=== PATIENT | female | born 1955 ===

== ENCOUNTER 2020-09-11 12:32 | Outpatient (REF) | payer OTHER, SELFPAY ==
--- NOTE | 2020-09-11 | MM_ITS ---
EXAMINATION: BONE DENSITOMETRY CLINICAL INDICATION: Asymptomatic menopausal state. COMPARISON: This is the patient's baseline examination. TECHNIQUE: Using a [employer] DXA System (software version: 13.1) manufactured by [employer], dual-energy x-ray absorptiometry was performed of the lumbar spine, left hip and left forearm radius 33%. The images are of good technical quality. Summary results are attached. FINDINGS: AP SPINE L1-L2 (excluding L3 and L4): The data of L1-L4 has been changed to exclude the L3 and L4 vertebral bodies, because hardware at these levels may cause overestimation of lumbar spine density. BMD 1.118 g/cm2, Z-score 1.3, T-score -0.4, normal. LEFT FEMUR, NECK: BMD 0.825 g/cm2, Z-score 0.0, T-score -1.5, osteopenia. LEFT FEMUR, TOTAL: BMD 0.830 g/cm2, Z-score -0.1, T-score -1.4, osteopenia. LEFT FOREARM RADIUS 33%: BMD 0.760 g/cm2, Z-score -0.1, T-score -1.3, osteopenia. IDENTIFIED RISK FACTORS: Height loss. Parental hip fracture. Secondary osteoporosis (early menopause). Hysterectomy. Bilateral oophorectomy. HISTORY OF FRACTURE: None listed. MEDICATIONS: Calcium supplement and/or multivitamin. MM/XR DEXA axial skeleton IMPRESSION: 1. DIAGNOSIS: Osteopenia based on the lowest T-score value of -1.5 in the femoral neck applying World Health Organization criteria. 2. 10-YEAR FRACTURE RISK PREDICTION, FRAX: Major osteoporotic fracture (clinical spine, forearm, hip or shoulder) 16.4%. Hip fracture 0.9%. 3. Treatment Recommendations: NOF guidelines recommend consideration for treatment in postmenopausal women and men age 50 and older presenting with the following: -A hip or vertebral (clinical or morphometric) fracture. -T-score less than or equal to -2.5 at the femoral neck or spine after appropriate evaluation to exclude secondary causes. -Low bone mass at the hip or spine and a 10-year fracture probability by FRAX of greater than or equal to 3% for hip fracture or greater than or equal to 20% for major osteoporotic fracture based on the [place] adapted WHO algorithm. 4. Other Recommendations: All treatment decisions require clinical judgment and consideration of individual patient factors, including patient preferences, comorbidities, previous drug use, risk factors not captured in the FRAX model (e.g. frailty, falls, vitamin D deficiency, increased bone turnover, interval significant decline in bone density) and possible under or overestimation of fracture risk by FRAX. Additional medical evaluation for secondary cause of low bone mineral density may be appropriate. FUTURE SCAN RECOMMENDATION: People with diagnosed cases of osteoporosis or at high risk for fracture should have regular bone mineral density tests. For patients eligible for Medicare, routine testing is allowed once every 2 years. The testing frequency can be increased to one year for patients who have rapidly progressing disease, those who are receiving or discontinuing medical therapy to restore bone mass, or have additional risk factors.
--- NOTE | 2020-09-11 | MM_ITS ---
EXAMINATION: MM SCREENING DIGITAL BREAST TOMOSYNTHESIS, BILATERAL CLINICAL INFORMATION: Screening. Asymptomatic. The lifetime risk of breast cancer based on the Tyrer-Cuzick Model is 4.5%. COMPARISON: Mammography: February 15, 2019 and studies dating back to February 13, 2015 TECHNIQUE: Digital breast tomosynthesis is performed in both the craniocaudal and mediolateral oblique views along with computer-aided detection (CAD). Synthesized 2D images are generated from the tomosynthesis. FINDINGS: There are scattered areas of fibroglandular density (ACR BI-RADS breast composition Category b). There are no significant masses, abnormal calcifications, or other abnormalities. MM/MM tomosynthesis screening BI IMPRESSION: There are no significant changes from prior study. ASSESSMENT: BI-RADS 1: Negative RECOMMENDATION: Routine annual mammography screening. This patient's information was entered into a reminder system with a target due date for their next mammogram.
== END 2020-09-11 12:33 | disposition home or self-care (01) ==
LOC: HO.MAMMO 12:32
PROVIDERS: PCP Internal Medicine; Visit Provider Internal Medicine
DX: Z78.0 Asymptomatic menopausal state (principal); Z12.31 Encounter for screening mammogram for malignant neoplasm of breast; Z91.89 Other specified personal risk factors, not elsewhere classified
CPT/HCPCS: 77063; 77067; 77080

== ENCOUNTER 2020-10-07 09:38 | Outpatient (REF) | payer OTHER, SELFPAY ==
[2020-10-07 11:54] LABS: COVID-19 Test Negative (Negative); IDNOW Serial# 55D5AD1C
== END 2020-10-07 09:39 | disposition home or self-care (01) ==
LOC: HO.EMPCOV 09:38
PROVIDERS: Visit Provider Internal Medicine
DX: Z20.828 Contact with and (suspected) exposure to other viral communicable diseases (principal)
CPT/HCPCS: 87635; C9803

== ENCOUNTER 2020-10-10 16:34 | Outpatient (REF) | payer OTHER, SELFPAY ==
[2020-10-10 18:32] LABS: Alanine Aminotransferase 27 U/L (0-31); Albumin Level 4.4 g/dL (3.5-5.0); Alkaline Phosphatase 75 U/L (39-117); Anion Gap 12 (12-20); Aspartate Amino Transferase 29 U/L (5-31); Bilirubin Total 0.2 mg/dL (0.0-1.0); Blood Urea Nitrogen 17 mg/dL (9-16); Calcium 8.5 mg/dL (8.4-10.2); Carbon Dioxide 29 mmol/L (22-29); Chloride 102 mmol/L (96-108); Estimated Glomerular Filt Rate > 60; Glucose Random 92 mg/dL (60-115); Potassium 3.9 mmol/l (3.3-5.1); Sodium 139 mmol/L (135-145); Total Protein 6.7 g/dL (6.5-8.0)
== END 2020-10-10 16:35 | disposition home or self-care (01) ==
LOC: HO.LAB 16:34
PROVIDERS: PCP Internal Medicine; Visit Provider Student in an Organized Health Care Education/Training Program
DX: M17.0 Bilateral primary osteoarthritis of knee (principal)
CPT/HCPCS: 36415; 80053

== ENCOUNTER 2021-02-07 15:28 | Outpatient (REF) | payer OTHER, SELFPAY ==
--- NOTE | ~2021-02-07 | XR_ITS ---
EXAMINATION: XR knee RT 3V, XR knee LT 3V CLINICAL INFORMATION: Bilateral osteoarthritis. COMPARISON: None available at the time of this dictation. TECHNIQUE: Frontal lateral and patella sunrise view. FINDINGS: BONES: No fracture or dislocation is present. JOINTS: Mild narrowing of joint spaces suggest early degenerative osteoarthritis. No knee joint effusion. SOFT TISSUE: Normal XR/XR knee RT 3V IMPRESSION: Mild bilateral symmetric degenerative osteoarthritis. No knee joint effusion.
--- NOTE | ~2021-02-07 | XR_ITS ---
EXAMINATION: XR knee RT 3V, XR knee LT 3V CLINICAL INFORMATION: Bilateral osteoarthritis. COMPARISON: None available at the time of this dictation. TECHNIQUE: Frontal lateral and patella sunrise view. FINDINGS: BONES: No fracture or dislocation is present. JOINTS: Mild narrowing of joint spaces suggest early degenerative osteoarthritis. No knee joint effusion. SOFT TISSUE: Normal XR/XR knee LT 3V IMPRESSION: Mild bilateral symmetric degenerative osteoarthritis. No knee joint effusion.
[2021-02-08 08:22] LABS: Lyme Abs Screen <0.90 index
== END 2021-02-07 15:29 | disposition home or self-care (01) ==
LOC: HO.LAB 15:28
PROVIDERS: PCP Internal Medicine; Visit Provider Student in an Organized Health Care Education/Training Program
DX: M17.0 Bilateral primary osteoarthritis of knee (principal); Z88.6 Allergy status to analgesic agent; Z88.5 Allergy status to narcotic agent; Z88.8 Allergy status to other drugs, medicaments and biological substances; Z87.891 Personal history of nicotine dependence
CPT/HCPCS: 36415; 73562; 86617; 86618

== ENCOUNTER → 2021-05-30 13:02 | Outpatient (BNVA) | payer SELFPAY | PROVIDERS: PCP Internal Medicine | DX: Z20.822 Contact with and (suspected) exposure to COVID-19 (principal) | CPT/HCPCS: 36415; 87635 ==

== ENCOUNTER 2021-07-27 11:23 | Outpatient (REF) | payer OTHER, SELFPAY ==
[2021-07-27 12:22] LABS: Alanine Aminotransferase 20 U/L (0-31); Albumin Level 4.3 g/dL (3.5-5.0); Alkaline Phosphatase 75 U/L (39-117); Anion Gap 10 (12-20); Aspartate Amino Transferase 27 U/L (5-31); Bilirubin Total 0.4 mg/dL (0.0-1.0); Blood Urea Nitrogen 22 mg/dL (9-16); Calcium 9.7 mg/dL (8.4-10.2); Carbon Dioxide 29 mmol/L (22-29); Chloride 105 mmol/L (96-108); Estimated Glomerular Filt Rate > 60; Glucose Random 117 mg/dL (60-115); Potassium 4.9 mmol/L (3.3-5.1); Sodium 139 mmol/L (135-145); Total Protein 6.7 g/dL (6.5-8.0)
== END 2021-07-27 11:24 | disposition home or self-care (01) ==
LOC: HO.LAB 11:23
PROVIDERS: PCP Internal Medicine; Visit Provider Nurse Practitioner Family
DX: M17.0 Bilateral primary osteoarthritis of knee (principal)
CPT/HCPCS: 36415; 80053

== ENCOUNTER 2021-09-18 15:52 | Outpatient (REF) | payer OTHER, SELFPAY ==
--- NOTE | ~2021-09-18 | MM_ITS ---
EXAMINATION: MM SCREENING DIGITAL BREAST TOMOSYNTHESIS, BILATERAL CLINICAL INFORMATION: Screening. Asymptomatic. The lifetime risk of breast cancer based on the Tyrer-Cuzick Model is 4%. COMPARISON: Mammography: 09/11/2020, 02/15/2019, 01/26/2018 TECHNIQUE: Digital breast tomosynthesis is performed in both the craniocaudal and mediolateral oblique views along with computer-aided detection (CAD). Synthesized 2D images are generated from the tomosynthesis. FINDINGS: There are scattered areas of fibroglandular density (ACR BI-RADS breast composition Category b). Breast tissue composition borders on predominately fatty. Background stromal markings are stable. There are no significant masses, abnormal calcifications, or other abnormalities. The axilla and skin contours are unremarkable. MM/MM tomosynthesis screening BI IMPRESSION: No mammographic evidence of malignancy. ASSESSMENT: BI-RADS 1: Negative RECOMMENDATION: Routine annual mammography screening. This patient's information was entered into a reminder system with a target due date for their next mammogram.
== END 2021-09-18 15:53 | disposition home or self-care (01) ==
LOC: HO.MAMMO 15:52
PROVIDERS: Visit Provider Internal Medicine
DX: Z12.31 Encounter for screening mammogram for malignant neoplasm of breast (principal)
CPT/HCPCS: 77063; 77067

== ENCOUNTER 2021-12-28 16:41 | Outpatient (REF) | payer OTHER, SELFPAY ==
--- NOTE | ~2021-12-28 | XR_ITS ---
EXAMINATION: XR LUMBOSACRAL SPINE CLINICAL INFORMATION: Lumbago with sciatica left side. COMPARISON: None. TECHNIQUE: 3 views of the lumbosacral spine. FINDINGS: There is mild levoscoliosis. There is loss of L3-L4 disc height. There is L4-L5 disc prosthesis with posterior hardware for stabilization and fusion. The vertebral heights and alignment appear preserved. No lytic or sclerotic process seen. SI joints are symmetrical. There are degenerative disc changes T11-T12 disc level with mild ventral spondylosis. The paravertebral soft tissues are normal. There is moderate constipation. XR/XR lumbar spine 2-3V IMPRESSION: Levoscoliosis with degenerative disc changes L3-L4 and T11-T12 disc level. There is L4-L5 disc prosthesis with posterior hardware for fusion. No acute fracture or dislocation.
== END 2021-12-28 16:42 | disposition home or self-care (01) ==
LOC: HO.XRAY 16:41
PROVIDERS: PCP Internal Medicine; Visit Provider Nurse Practitioner Acute Care
DX: M54.42 Lumbago with sciatica, left side (principal)
CPT/HCPCS: 72100

== ENCOUNTER 2021-12-31 07:22 | Outpatient (REF) | payer OTHER, SELFPAY ==
[2021-12-31 07:51] LABS: MANUAL DIFF FLAG NO
[2021-12-31 08:14] LABS: Basophils Percent Auto 0.3 % (0-2); Eosinophils Absolute Auto 0.1 X10*3/uL (0.0-0.4); Eosinophils Percent Auto 2.5 % (0-4); Hematocrit 39.4 % (37.0-47.0); Hemoglobin 12.7 g/dl (12.0-16.0); Imm Gran Abs Auto 0.01 X10*3/uL (0.00-0.03); Imm Gran Pct Auto 0.3 % (0.0-0.4); Lymphocytes Percent Auto 28.2 % (20-40); Mean Corpuscular HGB Conc 32.2 g/dl (31.0-35.0); Mean Corpuscular Hemoglobin 30.1 pg (27.0-33.0); Mean Corpuscular Volume 93.4 fL (80.0-98.0); Monocytes Absolute Auto 0.2 X10*3/uL (0.1-1.2); Monocytes Percent Auto 6.5 % (2-11); Neutrophils Absolute Auto 2.2 x10*3/uL (2.0-8.3); Neutrophils Percent Auto 62.2 % (45-73); Platelet Count 194 X10*3/uL (160-400); Red Blood Count 4.22 X10*6/uL (4.20-5.50); Red Cell Distribution Width 12.2 % (11.0-16.0); White Blood Count 3.5 X10*3/uL (4.8-10.8)
[2021-12-31 08:52] LABS: Alanine Aminotransferase 20 U/L (0-31); Albumin Level 4.4 g/dL (3.5-5.0); Alkaline Phosphatase 62 U/L (39-117); Anion Gap 12 (12-20); Aspartate Amino Transferase 33 U/L (5-31); Bilirubin Total 0.3 mg/dL (0.0-1.0); Blood Urea Nitrogen 21 mg/dL (9-16); Calcium 9.5 mg/dL (8.4-10.2); Carbon Dioxide 28 mmol/L (22-29); Chloride 106 mmol/L (96-108); Cholesterol 189 mg/dL; Estimated Glomerular Filt Rate > 60; Glucose Fasting 82 mg/dL (60-99); HDL Cholesterol 79 mg/dL; LDL Cholesterol Calculated 102 mg/dl; Potassium 4.6 mmol/L (3.3-5.1); Sodium 141 mmol/L (135-145); Triglycerides 43 mg/dL
[2021-12-31 09:09] LABS: TSH reflex Free T4 2.96 uIU/mL (0.32-4.0)
[2021-12-31 09:25] LABS: Folate > 20.0 ng/mL (> or = 4.0); Vitamin B12 761 pg/mL (200-900)
[2022-01-04 13:55] LABS: Vitamin D 25-OH, D2 <4 ng/mL; Vitamin D 25-OH, D3 53 ng/mL; Vitamin D 25-OH, Total 53 ng/mL (30-100)
== END 2021-12-31 07:23 | disposition home or self-care (01) ==
LOC: HO.LAB 07:22
PROVIDERS: PCP Internal Medicine; Visit Provider Nurse Practitioner Acute Care
DX: Z00.00 Encounter for general adult medical examination without abnormal findings (principal)
CPT/HCPCS: 36415; 80053; 80061; 82306; 82607; 82746; 84443; 85025

== ENCOUNTER → 2022-01-07 07:59 | Outpatient (REF) | payer OTHER, SELFPAY ==
--- NOTE | 2022-01-07 08:09 | CA_ITS ---
Acquisition Time: 2022-01-07 08:34:23 Total Exercise Time: 00:07:30 Test Indications: DIZZYNESS Medications: SEE CHART Protocol: HÉCTOR Max HR: 123 BPM 78% of Pred: 156 BPM Max BP: 152/068 mmHG Max Work Load: 9.3 METS Exercise stress test with exercise 7 min 30 sec of Héctor protocol, achieving 78% MPHR, without anginal symptoms, with report of mild dizziness and bilateral shoulder/ arm discomfort ( from holding on to treadmill bar), with isolate PVC and PACs, with normotensive response to exercise, with nondiagnostic EKG for ischemia due to suboptimal heart rate however there are borderline ST changes inferolateral leads at peak and early recovery which does suggest possible ischemia. Test reviewed with Dr hSields. Msg sent to ordering provider with report and recommendation for a pharmacological nuclear stress test for further evaluation. Referred By: Christine Nesbitt Overread By: TREVOR MORALEZ
== END ==
LOC: HO.CARD 07:59
PROVIDERS: PCP Internal Medicine; Visit Provider Nurse Practitioner Acute Care
DX: R42 Dizziness and giddiness (principal)
CPT/HCPCS: 93017

== ENCOUNTER → 2022-01-23 08:01 | Outpatient (REF) | payer OTHER, SELFPAY ==
--- NOTE | ~2022-01-23 | NM_ITS ---
Myocardial perfusion study Indication: Dizziness to evaluate for myocardial ischemia Technique: The patient was brought in for a Lexiscan perfusion study on 01/23/2022. Patient performed low-level exercise and was injected 0.4 mg of Lexiscan intravenously. Within a minute of injection, 25 mCi of sestamibi was given intravenously. Images were obtained using the SPECT gamma camera interlaced with the gating device. Images were obtained in supine position. Resting perfusion study was performed on 01/25/2022. Patient was administered 25 mCi of sestamibi intravenously at rest. Images were then obtained in supine position. Images obtained with and without CT attenuation. Total DLP 68 mGy-cm. Images were processed with the software and compared side to side in short axis, horizontal long axis and vertical long axis views. Findings: The stress perfusion study showed non attenuated images show mildly reduced uptake in the basal septum of the LV myocardium. Remainder of the LV myocardium is normally perfused. Attenuation corrected images show mildly reduced uptake in the apex of the LV myocardium.. The gated study shows normal LV systolic function with calculated LVEF of 69%. LV cavity is normal in size. The gated study shows normal systolic wall thickening and contraction of segments. Resting study shows no significant change in perfusion pattern compared to stress perfusion study. Gating at rest reveals normal systolic wall motion with ejection fraction at greater than 70 %. The findings are consistent with no clear reversible defect suggestive of ischemia. Normal myocardial perfusion. NM/NM fatoumata perf SPECT rest & str Impression: 1. Myocardial perfusion imaging study shows normal myocardial perfusion 2. Gated LVEF is 69% 3. Transient ischemic dilatation not present EKG is nondiagnostic for ischemia
--- NOTE | 2022-01-23 08:04 | CA_ITS ---
Acquisition Time: 2022-01-23 08:13:14 Total Exercise Time: 00:02:00 Test Indications: Abnormal Treadmill Test Medications: SEE H Protocol: LEXISCAN Max HR: 121 BPM 77% of Pred: 156 BPM Max BP: 128/078 mmHG Max Work Load: 1.6 METS Pharmacological stress test using Lexiscan while walking on treadmill for 2 minutes. Pt had mild SOB and chest pressure 5/10 that was reversed with Aminophyline 75 mg IV. EKG without arrhythmia non-diagnostic for ischemia. Nuclear imagesa to follow. Referred By: Christine Nesbitt Overread By: Patrizia Andrews NP
== END ==
LOC: HO.CARD 08:01
PROVIDERS: PCP Internal Medicine; Visit Provider Nurse Practitioner Acute Care
DX: R42 Dizziness and giddiness (principal)
CPT/HCPCS: 78452; 93017; A9500; J0280; J2785

== ENCOUNTER 2022-01-29 12:24 | Emergency (ER) | payer OTHER, SELFPAY ==
--- NOTE | ~2022-01-29 | XR_ITS ---
EXAMINATION: XR CHEST CLINICAL INFORMATION: Covid infection COMPARISON: Previous chest x-ray November 2016 TECHNIQUE: Frontal view of the chest was obtained. FINDINGS: No significant abnormality is noted involving the heart, lungs, mediastinum, bony thorax or soft tissues. XR/XR chest 1V IMPRESSION: Unremarkable examination.
[2022-01-29 12:31] VITALS: BP 175/99; PULSE 93; RESP 18; TEMP 36.8; O2SAT 100; BMI 21.9
[2022-01-29 12:41] VITALS: BP 175/99; PULSE 93; RESP 18; TEMP 36.8; O2SAT 100
--- NOTE | 2022-01-29 12:43 | ED.NAVMDI ---
HPI - Nausea/Vomiting/Diarrhea General Chief complaint: Nausea/Vomiting/Diarrhea Stated complaint: n/v/d - home test covid+ Time Seen by Provider: 01/29/22 12:42 Source: patient Mode of arrival: ambulatory Limitations: no limitations History of Present Illness HPI Narrative: 66-year-old female with few days of COVID symptoms started with nausea vomiting diarrhea is starting to drink she vomits. Patient tested positive at home for COVID she states she has never had COVID before he thinks that several people at her judaism that also have COVID which have not been tested. She denies any falls or injuries denies chest pain or shortness of breath. MD elicited complaint: nausea, vomiting and diarrhea Related Data Home Medications Medication Instructions Recorded Confirmed docusate sodium 100 mg capsule 100 mg PO DAILY 02/07/21 (Colace) glucosamine sulfate 500 mg tablet 500 mg PO DAILY 02/07/21 (Glucosamine) magnesium hydroxide 400 mg (170 mg mg PO 02/07/21 magnesium) chewable tablet melatonin 10 mg capsule 10 mg PO BEDTIME PRN 02/07/21 omega-3 fatty acids 1,000 mg 1,000 mg PO BID 02/07/21 capsule (Fish Oil Concentrate) Previous Rx's Medication Instructions Recorded cyclobenzaprine 10 mg tablet 10 mg PO DAILY 90 Days #90 tab 05/12/21 rosuvastatin 10 mg tablet (Crestor) 10 mg PO DAILY 90 Days #90 tab 06/25/21 baclofen 10 mg tablet 10 mg PO BEDTIME PRN #90 tab 08/01/21 etodolac 400 mg tablet 400 mg PO BID #14 tab 11/15/21 tramadol 50 mg tablet 50 mg PO BID PRN 90 Days #180 tab 11/16/21 levothyroxine 75 mcg tablet 75 mcg PO DAILY #90 tab 01/14/22 nirmatrelvir 150 mg x 2-ritonavir 2 tab PO BID 5 Days #20 tab 01/29/22 100 mg tablet (EUA) ondansetron 4 mg disintegrating 4 mg PO Q6H #14 tab 01/29/22 tablet Allergies Allergy/AdvReac Type Severity Reaction Status Date / Time acetaminophen [Percocet] Allergy Unknown stomach Verified 01/29/22 12:31 upset cefaclor [From CECLOR] Allergy Unknown ICTH, Verified 01/29/22 12:31 hives, itchy Erythromycin Allergy Unknown hives, Verified 01/29/22 12:31 itchy erythromycin base Allergy Unknown ITCHING Verified 01/29/22 12:31 [ERYTHROMYCIN BASE] oxycodone [Percocet] Allergy Unknown stomach Verified 01/29/22 12:31 upset tetracycline [TETRACYCLINE] Allergy Unknown ITCH, Verified 01/29/22 12:31 hives, itchy Codeine Sulfate Allergy Unknown nausea Uncoded 01/29/22 12:31 Review of Systems Review of Systems: Review of systems: General: Patient denies any fever chills recent illness or falls Musculoskeletal: Denies back pain or body aches or other injuries HEENT: denies headache, runny nose, ear pain Respiratory: denies shortness of breath, cough Cardiovascular: no chest pain or palpitations : denies dysuria, frequency Abdomen: nausea vomiting denies abdominal pain Extremities: no swelling, no pain Skin: no diaphoresis Yes all other systems are reviewed and are negative PMFSH Past Medical History Medical History (Updated 01/29/22 @ 13:52 by Salazar Seymour DO) COVID-19 Social History Social History Housing: House Alcohol intake: current Alcohol intake frequency: a few times a month Patient Tobacco Use Status: Never used Tobacco e-Cigarette/Vaping Use: Never Used Second Hand Smoke Exposure: No Use of substances other than those prescribed or required for medical reasons: No Advance Directives: No Advance Directives Information Provided: No Patient : No service: No Current occupational status: employed Current occupational exposures/hazards: No Cognitive needs: No Hearing needs: No Vision needs: Yes Physical Exam Vital Signs: Vital Signs: Last Vital Signs Temp 98.2 F 01/29/22 12:41 Pulse 93 01/29/22 12:41 Resp 18 01/29/22 12:41 BP 175/99 H 01/29/22 12:41 Pulse Ox 100 01/29/22 12:41 BMI result Body Mass Index 21.9 General: Well-appearing well-nourished in no signs of distress HEENT: Normocephalic atraumatic Neck: No signs of JVD, no masses no tenderness or lymphadenopathy Cardiovascular: Regular rate and rhythm Respiratory: Clear to auscultation bilaterally Abdomen: Soft nontender no masses rectal exam performed guiac negative quality assurance analyst confirmed. Extremities: Normal pedal pulses no signs of edema Skin: Dry warm no rashes Back: No tenderness full ROM MDM - Nausea/Vomiting/Diarrhea MDM Narrative Medical decision making narrative: Patient with normal vitals I will give patient fluids Pepcid Zofran and Toradol stating the patient feeling somewhat better I will check labs including LFTs and lipase. Patient with mild elevation AST and ALT but otherwise normal do not think the patient requires admission she is sleeping in the feeling much better I will send home with Zofran and close PCP follow-up. Lab Data Result diagrams: 01/29/22 13:06 01/29/22 13:06 Labs: Lab Results 01/29/22 01/29/22 01/29/22 Range/Units 12:37 13:06 13:06 WBC 2.4 L (4.8-10.8) X10*3/uL RBC 4.10 L (4.20-5.50) X10*6/uL Hgb 12.1 (12.0-16.0) g/dl Hct 36.0 L (37.0-47.0) % MCV 87.8 (80.0-98.0) fL MCH 29.5 (27.0-33.0) pg MCHC 33.6 (31.0-35.0) g/dl RDW 11.9 (11.0-16.0) % Plt Count 123 L D (160-400) X10*3/uL MPV 8.7 L (9.4-12.3) fL Immature Gran % (Auto) 0.4 (0.0-0.4) % Neut % (Auto) 89.1 H (45-73) % Lymph % (Auto) 4.2 L (20-40) % [place] % (Auto) 6.3 (2-11) % Eos % (Auto) 0.0 (0-4) % Baso % (Auto) 0.0 (0-2) % Lymph # (Auto) 0.1 L (1.2-4.9) X10*3/uL [place] # (Auto) 0.2 (0.1-1.2) X10*3/uL Eos # (Auto) 0.0 (0.0-0.4) X10*3/uL Baso # (Auto) 0.0 (0.0-0.2) X10*3/uL Abs Immat Gran (auto) 0.01 (0.00-0.03) X10*3/uL Absolute Neuts (auto) 2.1 (2.0-8.3) x10*3/uL Absolute Nucleated RBC 0.000 (0.0-0.012) X10*3/uL Nucleated RBC % (auto) 0.0 (0.0-0.2) /100WBC Smear Tech's Comments VERIFIED Sodium 133 L (135-145) mmol/L Potassium 3.7 (3.3-5.1) mmol/L Chloride 99 (96-108) mmol/L Carbon Dioxide 25 (22-29) mmol/L Anion Gap 13 (12-20) BUN 17 H (9-16) mg/dL Creatinine 0.61 (0.5-1.4) mg/dL Estim Creat Clear Calc 73.6 Estimated GFR > 60 Random Glucose 111 (60-115) mg/dL Calcium 9.4 (8.4-10.2) mg/dL Total Bilirubin 0.2 (0.0-1.0) mg/dL Direct Bilirubin < 0.2 (0.0-0.5) mg/dL AST 51 H (5-31) U/L ALT 43 H (0-31) U/L Alkaline Phosphatase 78 D (39-117) U/L Total Protein 7.0 (6.5-8.0) g/dL Albumin 4.4 (3.5-5.0) g/dL Lipase 32 (8-78) U/L COVID-19 (EDDIE) Positive A (Negative) COVID-19 Clin Com See Note Discharge Plan Discharge Clinical Impression: COVID-19, Dehydration, Vomiting, Diarrhea Patient Disposition: Home, Self-Care Instructions: Dehydration (ED), Acute Nausea and Vomiting (ED), COVID-19 (Coronavirus Disease 2019) (ED) Additional Instructions: Please call to follow up with your doctor. If you have any other concerns please return to the ED. Prescriptions: New ondansetron 4 mg tablet,disintegrating 4 mg PO Q6H Qty: 14 0RF No Action cyclobenzaprine 10 mg tablet 10 mg PO DAILY 90 Days Qty: 90 3RF rosuvastatin [Crestor] 10 mg tablet 10 mg PO DAILY 90 Days Qty: 90 3RF baclofen 10 mg tablet 10 mg PO BEDTIME PRN (Reason: spasms) Qty: 90 0RF etodolac 400 mg tablet 400 mg PO BID Qty: 14 0RF tramadol 50 mg tablet 50 mg PO BID PRN (Reason: pain) 90 Days Qty: 180 0RF levothyroxine 75 mcg tablet 75 mcg PO DAILY Qty: 90 1RF nirmatrelvir-ritonavir 150 mg x 2- 100 mg tablet 2 tab PO BID 5 Days Qty: 20 0RF docusate sodium [Colace] 100 mg capsule 100 mg PO DAILY 0RF magnesium hydroxide 400 mg (170 mg magnesium) tablet,chewable PO 0RF glucosamine sulfate [Glucosamine] 500 mg tablet 500 mg PO DAILY 0RF Rx Instructions: administer with a meal omega-3 fatty acids [Fish Oil Concentrate] 1,000 mg capsule 1,000 mg PO BID 0RF melatonin 10 mg capsule 10 mg PO BEDTIME PRN0RF
[2022-01-29 12:58] LABS: COVID-19 Test Positive (Negative)
[2022-01-29] MEDS: 0.9 % Sodium Chloride 1,000 ML 999 ML IV (13:08)
[2022-01-29] MEDS: Ketorolac Tromethamine 15 MG/ML VIAL IVPUSH (13:08)
[2022-01-29] MEDS: Famotidine/PF 20 MG/2 ML VIAL IVPUSH (13:08)
[2022-01-29] MEDS: ondansetron HCL 4 MG/2 ML VIAL IVPUSH (13:08)
[2022-01-29 13:12] LABS: Hemoglobin 12.1 g/dl (12.0-16.0); Imm Gran Abs Auto 0.01 X10*3/uL (0.00-0.03); Imm Gran Pct Auto 0.4 % (0.0-0.4); Lymphocytes Absolute Auto 0.1 X10*3/uL (1.2-4.9); Lymphocytes Percent Auto 4.2 % (20-40); MANUAL DIFF FLAG SCAN; Mean Corpuscular HGB Conc 33.6 g/dl (31.0-35.0); Mean Corpuscular Hemoglobin 29.5 pg (27.0-33.0); Mean Corpuscular Volume 87.8 fL (80.0-98.0); Mean Platelet Volume 8.7 fL (9.4-12.3); Monocytes Absolute Auto 0.2 X10*3/uL (0.1-1.2); Monocytes Percent Auto 6.3 % (2-11); Neutrophils Absolute Auto 2.1 x10*3/uL (2.0-8.3); Neutrophils Percent Auto 89.1 % (45-73); Red Cell Distribution Width 11.9 % (11.0-16.0); SCAN SMEAR FLAG 1
[2022-01-29 13:13] LABS: White Blood Count 2.4 X10*3/uL (4.8-10.8)
[2022-01-29 13:32] LABS: Alanine Aminotransferase 43 U/L (0-31); Albumin Level 4.4 g/dL (3.5-5.0); Alkaline Phosphatase 78 U/L (39-117); Anion Gap 13 (12-20); Aspartate Amino Transferase 51 U/L (5-31); Bilirubin Direct < 0.2 mg/dL (0.0-0.5); Bilirubin Total 0.2 mg/dL (0.0-1.0); Blood Urea Nitrogen 17 mg/dL (9-16); Calcium 9.4 mg/dL (8.4-10.2); Carbon Dioxide 25 mmol/L (22-29); Chloride 99 mmol/L (96-108); Creatinine Clr Calc Pharmacy 73.6; Estimated Glomerular Filt Rate > 60; Glucose Random 111 mg/dL (60-115); Lipase 32 U/L (8-78); Potassium 3.7 mmol/L (3.3-5.1); Sodium 133 mmol/L (135-145)
[2022-01-29 13:33] LABS: Platelet Count 123 X10*3/uL (160-400); SLIDE REVIEW VERIFIED
[2022-01-29 14:49] VITALS: BP 155/70; PULSE 88; RESP 16; O2SAT 100
== END 2022-01-29 14:49 | disposition home or self-care (01) ==
PROVIDERS: Emergency Provider Student in an Organized Health Care Education/Training Program; PCP Internal Medicine
DX: U07.1 COVID-19 (principal); E86.0 Dehydration; R11.10 Vomiting, unspecified; R19.7 Diarrhea, unspecified
CPT/HCPCS: 36415; 71045; 80048; 80076; 83690; 85025; 87635; 96361; 96374; 96375; 99284; J1885; J2405

== ENCOUNTER 2022-02-18 11:30 | Outpatient (REF) | payer OTHER, SELFPAY ==
[2022-02-18 16:43] LABS: MANUAL DIFF FLAG NO
[2022-02-18 18:24] LABS: Basophils Percent Auto 0.5 % (0-2); Eosinophils Absolute Auto 0.1 X10*3/uL (0.0-0.4); Eosinophils Percent Auto 2.5 % (0-4); Hematocrit 34.5 % (37.0-47.0); Hemoglobin 11.4 g/dl (12.0-16.0); Imm Gran Abs Auto 0.01 X10*3/uL (0.00-0.03); Imm Gran Pct Auto 0.2 % (0.0-0.4); Lymphocytes Absolute Auto 1.2 X10*3/uL (1.2-4.9); Lymphocytes Percent Auto 29.2 % (20-40); Mean Corpuscular Hemoglobin 29.9 pg (27.0-33.0); Mean Corpuscular Volume 90.6 fL (80.0-98.0); Mean Platelet Volume 8.9 fL (9.4-12.3); Monocytes Absolute Auto 0.3 X10*3/uL (0.1-1.2); Neutrophils Absolute Auto 2.4 x10*3/uL (2.0-8.3); Neutrophils Percent Auto 59.6 % (45-73); Platelet Count 194 X10*3/uL (160-400); Red Blood Count 3.81 X10*6/uL (4.20-5.50); Red Cell Distribution Width 12.3 % (11.0-16.0)
[2022-02-18 18:52] LABS: Alanine Aminotransferase 25 U/L (0-31); Albumin Level 4.1 g/dL (3.5-5.0); Alkaline Phosphatase 70 U/L (39-117); Anion Gap 11 (12-20); Aspartate Amino Transferase 29 U/L (5-31); Bilirubin Total 0.3 mg/dL (0.0-1.0); Blood Urea Nitrogen 23 mg/dL (9-16); Calcium 9.5 mg/dL (8.4-10.2); Carbon Dioxide 27 mmol/L (22-29); Chloride 104 mmol/L (96-108); Estimated Glomerular Filt Rate > 60; Glucose Random 100 mg/dL (60-115); Potassium 4.1 mmol/L (3.3-5.1); Sodium 138 mmol/L (135-145); Total Protein 6.6 g/dL (6.5-8.0)
== END 2022-02-18 11:31 | disposition home or self-care (01) ==
LOC: HO.LAB 11:30
PROVIDERS: PCP Internal Medicine; Visit Provider Nurse Practitioner Family
DX: M17.0 Bilateral primary osteoarthritis of knee (principal); M47.812 Spondylosis without myelopathy or radiculopathy, cervical region; M54.42 Lumbago with sciatica, left side
CPT/HCPCS: 36415; 80053; 85025

== ENCOUNTER → 2022-03-20 10:36 | Outpatient (BNVA) | payer OTHER, SELFPAY | PROVIDERS: PCP Internal Medicine; Referring Provider Internal Medicine; Visit Provider Internal Medicine Cardiovascular Disease | DX: R42 Dizziness and giddiness (principal); R06.02 Shortness of breath | CPT/HCPCS: 93005 ==

== ENCOUNTER 2022-03-26 17:00 | Outpatient (RCR) | payer OTHER, SELFPAY | END 2022-05-06 10:21 | disposition home or self-care (01) | LOC: HO.PT 17:00 | PROVIDERS: PCP Internal Medicine; Visit Provider Nurse Practitioner Acute Care | DX: M47.816 Spondylosis without myelopathy or radiculopathy, lumbar region (principal); M47.812 Spondylosis without myelopathy or radiculopathy, cervical region | CPT/HCPCS: 97110; 97112; 97161; 97530 ==

== ENCOUNTER 2022-04-26 13:00 | Outpatient (RCR) | payer OTHER, SELFPAY ==
--- NOTE | 2022-04-02 13:23 | MHC.PT.EP ---
[facility] [place] [facility] [place] Office [place] Office [address] Yadi Urbina [address] [phone] F: [phone] F: [phone] F: [phone] F: [phone] Physical Therapy Plan of Care Date of Evaluation: Date of Surgery: Diagnosis: vertigo Assessment: The patient arrived reporting dizziness with position change. She was positive in right hallpike for vertigo symptoms. No nystagmus noted. I did CRM as a precautionary measure for right PC. The pt will undergo a more in depth balance assessment next visit. She felt better upon leaving. Frequency and Duration: The patient will be seen 2x/week x 2 weeks Short Term Goals: 1.Pt to be negative for nystagmus in all diagnostic positions for BPPV to facilitate improved functional movements. Group Home Goals: 1. For the patient to be negative for nystagmus or reports of vertigo in all diagnostic positions bilaterally to resolution of BPPV in 4 weeks. 2. For the patient to be able to functionally move in all planes and directions without provocation of dizziness to show return to PLOF. 3.For the patient to be educated on symptoms and indications to return to therapy when needed in 4 weeks. Treatment Plan: Modalities to reduce pain, spasms and effusion. Manual therapy to restore motion and function. Therapeutic exercise to improve strength and flexibility. Neuromuscular re-education for posture and balance. Therapeutic activities to return to functional activities of daily living. Electronically signed by: Christine Cote PT DPT Please sign and return to therapist. Thank you for your referral.
== END 2022-09-02 15:22 | disposition home or self-care (01) ==
LOC: HO.PT 13:00
PROVIDERS: PCP Internal Medicine; Visit Provider Internal Medicine
DX: R42 Dizziness and giddiness (principal)
CPT/HCPCS: 95992; 97112; 97162

== ENCOUNTER → 2022-05-09 13:01 | Outpatient (REF) | payer OTHER, SELFPAY ==
--- NOTE | 2022-05-09 13:07 | HM_ITS ---
* Total monitoring time 3 days and 10 hours. * Underlying rhythm is sinus. Average rate 81/Min. Range 67 to 112/Min. * No atrial fibrillation or flutter or AV blocks or pauses. * Rare supraventricular and ventricular ectopy with minimal burden. * Patient symptoms of shortness of breath, rapid/fast heartbeat associated with supraventricular and ventricular ectopy. MTDD
--- NOTE | 2022-05-09 13:07 | CA_ITS ---
Transthoracic Echocardiogram Patient (Last, First, Middle): Bernadette Kwon M Gender: Female Date of : 1955 Age: 67 Procedure Date: 05/09/2022 Procedure Type: Transthoracic Echocardiogram Location: OP Height: 157.48 cm Weight: 52.62 kg BSA: 1.52 m2 Heart Rate: bpm BP: 118 / 70 mmHg Lean Engineer: TO Referring MD: Piero Shields MD Waterproofer Helper: Piero Shields MD Symptoms: R42 - Dizziness and giddiness Study Quality: Adequate ECG Rhythm: Sinus Conclusions: - 1. Normal LV systolic function with grade 1 diastolic dysfunction 2. Normal cardiac valvular Doppler 3. Normal RV systolic pressure 4. No gross pericardial effusion Findings Left Ventricle Normal left ventricular size, thickness, and systolic function. The visually estimated ejection fraction is between 60-65%. Spectral Doppler is indicative of an impaired relaxation filling pattern. E/E prime ratio is <8, consistent with normal filling pressures. Evidence suggests grade I (mild) diastolic dysfunction. Right Ventricle Normal right ventricular cavity size and systolic function. Atria Both atria are normal in size. There is lipomatous hypertrophy of the interatrial septum. There is no evidence of interatrial shunt. Aortic Valve Normal aortic valve structure and function. There is no aortic valve stenosis. There is no aortic valve regurgitation. Mitral Valve There is mild anterior and posterior mitral leaflet thickening. There is trace mitral valve regurgitation. There is no mitral valve stenosis. Pulmonic Valve The pulmonic valve was not well visualized. Tricuspid Valve Likely normal tricuspid valve structure and function. There is trace tricuspid valve regurgitation. The right ventricular systolic pressure is normal. The right ventricular systolic pressure is 17 mmHg. Normal right atrial pressure. There is no evidence of pulmonary hypertension. Great Vessels All visible segments of the aorta are normal in size. The pulmonary artery was not well visualized. Venous The inferior vena cava is normal in size and collapses greater than 50% with inspiration. Pericardium/Pleural There is no evidence of pericardial effusion. Prior Study Comparison No prior study available for comparison. Measurements 2D Linear Measurements IVSd: 0.97 0.6-0.9/0.6-1.0 cm LVIDd: 4.31 3.9-5.3/4.2-5.9 cm LVIDd Index: 2.84 2.4-3.2/2.2-3.1 cm/m2 LVIDs: 2.35 2.0-3.6 cm LVPWd: 0.85 0.7-1.1 cm LA Diam: 2.50 2.7-3.8/3.0-4.0 cm LAIDs Index: 1.64 1.5-2.3 cm/m2 LV Mass: 156.53 67-162/88-224 g LV Mass Index: 102.98 43-95/49-115 g/m2 LVOT Diam: 2.00 3.0+(-)1.3 cm 2D Systolic Function EF 4C: 61.70 >55% EF 2C: 62.40 >55% EF BiP: 63.50 >55% Mitral Valve MV Pk E: 0.71 MV PK A: 0.75 MV Decel Time: 206.00 E/A: 0.90 E'Lateral: 9.57 E'Medial: 7.29 E/E' Med: 9.80 E/E' Lat: 7.40 PHT: 60.00 MVA PHT: 3.67 Decel Thayer: 3.46 Aortic Valve AoV Pk James: 1.59 AoV Mn James: 1.17 AoV VTI: 0.35 AoV Pk Grad: 10.00 Aov Mn Grad: 6.00 GERMAIN Cont.VTI: 2.46 LVOT LVOT Pk James: 1.17 LVOT Mn James: 0.86 LVOT VTI: 0.27 LVOT Pk Grad: 5.00 LVOT Mn Grad: 3.00 LVOT Diam: 2.00 LVOT Area: 3.14 Diastolic Function MV Pk E: 0.71 MV Pk A: 0.75 E/A: 0.90 E'Medial: 7.29 E/E' Med: 9.80 E' Laterial: 9.57 E/E' Lat: 7.40 Right Ventricle TAPSE (mm): 22.60 TVS' James: 10.70 Tricuspid Valve TR Pk James: 1.87 TR Pk Grad: 14.00 RA Press: 3.00 RVSP: 17.00 Great Vessels Aorta Sinus of Valsalva: 3.54 2.0-3.[address] Ridge: 2.57 1.7-3.4 cm Ao Asc: 3.00 2.1-3.4 cm Updated in Other Vendor System with Status of Final Piero Shields MD electronically signed on 05/10/2022 4:46:14 PM with status of Final
== END ==
LOC: HO.CARD 13:01
PROVIDERS: PCP Internal Medicine; Visit Provider Internal Medicine Cardiovascular Disease
DX: R42 Dizziness and giddiness (principal); R06.02 Shortness of breath
CPT/HCPCS: 93242; 93306

== ENCOUNTER 2022-05-14 16:31 | Outpatient (REF) | payer OTHER, SELFPAY ==
[2022-05-16 13:08] LABS: Gliadin Deamidated IgA Ab <1.0 U/mL; Gliadin Deamidated IgG Ab <1.0 U/mL; Transglutaminase Ab IgG <1.0 U/mL; Transglutaminase IgA <1.0 U/mL
[2022-05-16 21:17] LABS: Immunoglobulin A 143 mg/dL (70-320)
[2022-05-23 14:51] LABS: Endomysial IgA Antibody Negative (Negative)
== END 2022-05-14 16:32 | disposition home or self-care (01) ==
LOC: HO.LAB 16:31
PROVIDERS: PCP Internal Medicine; Visit Provider Internal Medicine
DX: K58.9 Irritable bowel syndrome, unspecified (principal); R19.7 Diarrhea, unspecified
CPT/HCPCS: 36415; 82784; 86231; 86258; 86364

== ENCOUNTER 2022-08-05 11:30 | Outpatient (REF) | payer OTHER, SELFPAY ==
--- NOTE | ~2022-08-05 | XR_ITS ---
EXAMINATION: XR FOOT, LEFT CLINICAL INFORMATION: Pain COMPARISON: Previous x-ray October 2015 TECHNIQUE: AP, lateral, and oblique views of the left foot. FINDINGS: The bones and soft tissues are normal. No fracture. Alignment is anatomic. Joint spaces are maintained. XR/XR foot LT min 3V IMPRESSION: Normal left foot.
== END 2022-08-05 11:31 | disposition home or self-care (01) ==
LOC: HO.HOSX 11:30
PROVIDERS: Visit Provider Physician Assistant
DX: M79.672 Pain in left foot (principal)
CPT/HCPCS: 73630

== ENCOUNTER 2022-10-14 16:14 | Outpatient (REF) | payer OTHER, SELFPAY ==
--- NOTE | ~2022-10-14 | MM_ITS ---
EXAMINATION: MM SCREENING DIGITAL BREAST TOMOSYNTHESIS, BILATERAL CLINICAL INFORMATION: Screening. Asymptomatic. The lifetime risk of breast cancer based on the Tyrer-Cuzick Model is 4.6%. COMPARISON: Mammography: September 18, 2021 and studies dating back to February 27, 2016 TECHNIQUE: Digital breast tomosynthesis is performed in both the craniocaudal and mediolateral oblique views along with computer-aided detection (CAD). Synthesized 2D images are generated from the tomosynthesis. FINDINGS: There are scattered areas of fibroglandular density (ACR BI-RADS breast composition Category b). There are no significant masses, abnormal calcifications, or other abnormalities. MM/MM tomosynthesis screening BI IMPRESSION: No significant changes from prior exam. ASSESSMENT: BI-RADS 1: Negative RECOMMENDATION: Routine annual mammography screening. This patient's information was entered into a reminder system with a target due date for their next mammogram.
== END 2022-10-14 16:15 | disposition home or self-care (01) ==
LOC: HO.MAMMO 16:14
PROVIDERS: PCP Internal Medicine; Visit Provider Internal Medicine
DX: Z12.31 Encounter for screening mammogram for malignant neoplasm of breast (principal)
CPT/HCPCS: 77063; 77067

== ENCOUNTER 2022-11-21 16:37 | Outpatient (REF) | payer OTHER, SELFPAY ==
[2022-11-21 16:49] LABS: MANUAL DIFF FLAG NO
[2022-11-21 18:03] LABS: Basophils Percent Auto 0.7 % (0-2); Eosinophils Absolute Auto 0.2 X10*3/uL (0.0-0.4); Hematocrit 39.2 % (37.0-47.0); Hemoglobin 12.7 g/dl (12.0-16.0); Imm Gran Abs Auto 0.03 X10*3/uL (0.00-0.03); Imm Gran Pct Auto 0.5 % (0.0-0.4); Lymphocytes Absolute Auto 1.7 X10*3/uL (1.2-4.9); Lymphocytes Percent Auto 28.7 % (20-40); Mean Corpuscular HGB Conc 32.4 g/dl (31.0-35.0); Mean Corpuscular Hemoglobin 29.2 pg (27.0-33.0); Mean Corpuscular Volume 90.1 fL (80.0-98.0); Mean Platelet Volume 8.7 fL (9.4-12.3); Monocytes Absolute Auto 0.4 X10*3/uL (0.1-1.2); Monocytes Percent Auto 6.8 % (2-11); Neutrophils Absolute Auto 3.6 x10*3/uL (2.0-8.3); Neutrophils Percent Auto 60.3 % (45-73); Platelet Count 231 X10*3/uL (160-400); Red Blood Count 4.35 X10*6/uL (4.20-5.50); Red Cell Distribution Width 11.8 % (11.0-16.0)
[2022-11-21 18:09] LABS: Alanine Aminotransferase 26 U/L (0-31); Albumin Level 4.4 g/dL (3.5-5.0); Alkaline Phosphatase 83 U/L (39-117); Anion Gap 15 (12-20); Aspartate Amino Transferase 32 U/L (5-31); Bilirubin Total 0.3 mg/dL (0.0-1.0); Blood Urea Nitrogen 22 mg/dL (9-16); Calcium 9.3 mg/dL (8.4-10.2); Carbon Dioxide 27 mmol/L (22-29); Chloride 103 mmol/L (96-108); Estimated Glomerular Filt Rate > 60; Glucose Random 84 mg/dL (60-115); Potassium 4.6 mmol/L (3.3-5.1); Sodium 140 mmol/L (135-145); Total Protein 6.9 g/dL (6.5-8.0)
== END 2022-11-21 16:38 | disposition home or self-care (01) ==
LOC: HO.LAB 16:37
PROVIDERS: PCP Internal Medicine; Visit Provider Nurse Practitioner Family
DX: M47.816 Spondylosis without myelopathy or radiculopathy, lumbar region (principal)
CPT/HCPCS: 36415; 80053; 85025

== ENCOUNTER 2023-01-01 14:00 | Outpatient (RCR) | payer OTHER, SELFPAY ==
--- NOTE | 2023-01-22 09:52 | MHC.PT.DC ---
[facility] [place] Office [place] Office [place] Office [address] Y[address] [place] [address] [phone] F: [phone] F: [phone] F: [phone] F: [phone] Physical Therapy Discharge Report Diagnosis: BPPV Date of Surgery: Date of Evaluation: 12/30/22 Date of Discharge: 01/22/23 Treatments to Date: 2 Cancellations to Date: 0 No Shows to Date: 0 Discharge Status: Achieved Goals Improved Function Discharge Summary: NOLAN ATTENDED 2 VISITS OF PT AND SYMPTOMS OF VERTIGO HAVE RESOLVED. SHE IS DCed AT THIS TIME AND IS TO CALL US IF SYMPTOMS RETURN. Electronically signed by: ASH WILLETT PT, DPT Please sign and return to therapist. Thank you for your referral.
== END 2023-01-22 09:52 | disposition home or self-care (01) ==
LOC: HO.PT 14:00
PROVIDERS: Visit Provider Internal Medicine
DX: R42 Dizziness and giddiness (principal)
CPT/HCPCS: 95992; 97161

== ENCOUNTER → 2023-01-01 14:40 | Outpatient (BNVA) | payer OTHER, SELFPAY | PROVIDERS: PCP Internal Medicine; Visit Provider Nurse Practitioner Family | DX: Z13.89 Encounter for screening for other disorder (principal) ==

== ENCOUNTER 2023-01-28 15:00 | Outpatient (REF) | payer OTHER, SELFPAY ==
--- NOTE | ~2023-01-28 | MM_ITS ---
EXAMINATION: BONE DENSITOMETRY CLINICAL INDICATION: Osteopenia. COMPARISON: Baseline BD dated 09/11/2020. TECHNIQUE: Using a Plain Vanilla DXA System (software version: 13.1) manufactured by [employer], dual-energy x-ray absorptiometry was performed of the lumbar spine and left hip. The images are of good technical quality. Summary results are attached. FINDINGS: AP SPINE L1-L2 (excluding L3 and L4): The data of L1-L4 has been changed to exclude the L3 and L4 vertebral bodies, because hardware at these levels may cause overestimation of lumbar spine density. Current: BMD 1.077 g/cm2, Z-score 1.3, T-score -0.7, normal, 3.7% decrease from baseline (<5% change is not significant). Baseline: BMD 1.118 g/cm2. LEFT FEMUR, NECK: Current: BMD 0.752 g/cm2, Z-score -0.3, T-score -2.1, osteopenia. Baseline: BMD 0.825 g/cm2. LEFT FEMUR, TOTAL: Current: BMD 0.812 g/cm2, Z-score 0.0, T-score -1.6, osteopenia, 2.2% decrease from baseline (<5% change is not significant). Baseline: BMD 0.830 g/cm2. IDENTIFIED RISK FACTORS: Early menopause, bilateral oophorectomy, height loss, hysterectomy, secondary osteoporosis. HISTORY OF FRACTURE: None listed. MEDICATIONS: Calcium, vitamin D. MM/XR DEXA axial skeleton IMPRESSION: 1. DIAGNOSIS: Osteopenia based on the lowest T-score value of -2.1 in the femoral neck applying World Health Organization criteria. 2. 10-YEAR FRACTURE RISK PREDICTION, FRAX: Major osteoporotic fracture (clinical spine, forearm, hip or shoulder) 18.4%. Hip fracture 2.1%. 3. Treatment Recommendations: NOF guidelines recommend consideration for treatment in postmenopausal women and men age 50 and older presenting with the following: -A hip or vertebral (clinical or morphometric) fracture. -T-score less than or equal to -2.5 at the femoral neck or spine after appropriate evaluation to exclude secondary causes. -Low bone mass at the hip or spine and a 10-year fracture probability by FRAX of greater than or equal to 3% for hip fracture or greater than or equal to 20% for major osteoporotic fracture based on the [place] adapted WHO algorithm. 4. Other Recommendations: All treatment decisions require clinical judgment and consideration of individual patient factors, including patient preferences, comorbidities, previous drug use, risk factors not captured in the FRAX model (e.g. frailty, falls, vitamin D deficiency, increased bone turnover, interval significant decline in bone density) and possible under or overestimation of fracture risk by FRAX. Additional medical evaluation for secondary cause of low bone mineral density may be appropriate. FUTURE SCAN RECOMMENDATION: People with diagnosed cases of osteoporosis or at high risk for fracture should have regular bone mineral density tests. For patients eligible for Medicare, routine testing is allowed once every 2 years. The testing frequency can be increased to one year for patients who have rapidly progressing disease, those who are receiving or discontinuing medical therapy to restore bone mass, or have additional risk factors.
== END 2023-01-28 15:01 | disposition home or self-care (01) ==
LOC: HO.MAMMO 15:00
PROVIDERS: PCP Internal Medicine; Visit Provider Nurse Practitioner Family
DX: Z13.820 Encounter for screening for osteoporosis (principal); M85.80 Other specified disorders of bone density and structure, unspecified site; Z78.0 Asymptomatic menopausal state
CPT/HCPCS: 77080

== ENCOUNTER 2023-02-12 07:20 | Outpatient (REF) | payer OTHER, SELFPAY ==
[2023-02-12 08:59] LABS: Alanine Aminotransferase 38 U/L (0-31); Albumin Level 4.1 g/dL (3.5-5.0); Alkaline Phosphatase 76 U/L (39-117); Anion Gap 9 (12-20); Aspartate Amino Transferase 36 U/L (5-31); Bilirubin Total 0.5 mg/dL (0.0-1.0); Blood Urea Nitrogen 23 mg/dL (9-16); Calcium 9.6 mg/dL (8.4-10.2); Carbon Dioxide 31 mmol/L (22-29); Chloride 106 mmol/L (96-108); Cholesterol 157 mg/dL; Estimated Glomerular Filt Rate > 60; Glucose Random 80 mg/dL (60-115); HDL Cholesterol 64 mg/dL; LDL Cholesterol Calculated 84 mg/dl; Potassium 4.6 mmol/L (3.3-5.1); Sodium 141 mmol/L (135-145); Total Protein 6.2 g/dL (6.5-8.0); Triglycerides 48 mg/dL
[2023-02-12 09:16] LABS: Thyroid Stimulating Hormone 1.88 uIU/mL (0.32-4.0); Vitamin D 25-OH Total 60.4 ng/mL (>30)
== END 2023-02-12 07:21 | disposition home or self-care (01) ==
LOC: HO.LAB 07:20
PROVIDERS: PCP Internal Medicine; Visit Provider Internal Medicine
DX: E03.8 Other specified hypothyroidism (principal); E55.9 Vitamin D deficiency, unspecified; E06.3 Autoimmune thyroiditis; E78.5 Hyperlipidemia, unspecified; E78.00 Pure hypercholesterolemia, unspecified
CPT/HCPCS: 36415; 80053; 80061; 82306; 84443

== ENCOUNTER 2023-02-26 12:12 | Emergency (ER) | payer OTHER, SELFPAY ==
[2023-02-26 12:38] VITALS: BP 151/86; PULSE 80; RESP 18; TEMP 36.6; O2SAT 99; BMI 21.4
--- NOTE | 2023-02-26 12:39 | ED.NAVMDI ---
HPI - Nausea/Vomiting/Diarrhea General Chief complaint: Nausea/Vomiting/Diarrhea Stated complaint: Flu Like Symptoms Time Seen by Provider: 02/26/23 15:21 Related Data Home Medications Medication Instructions Recorded Confirmed glucosamine sulfate 500 mg tablet 500 mg PO DAILY 02/07/21 05/20/22 (Glucosamine) magnesium hydroxide 400 mg (170 mg mg PO 02/07/21 05/20/22 magnesium) chewable tablet melatonin 10 mg capsule 10 mg PO BEDTIME PRN 02/07/21 05/20/22 omega-3 fatty acids 1,000 mg 1,000 mg PO BID 02/07/21 05/20/22 capsule (Fish Oil Concentrate) triamcinolone acetonide 0.1 % 1 appl topical BID 02/18/22 05/20/22 topical cream calcium carbonate 600 mg calcium 600 mg PO DAILY 02/17/23 (1,500 mg) tablet Previous Rx's Medication Instructions Recorded rosuvastatin 10 mg tablet (Crestor) 10 mg PO DAILY 90 days #90 tabs 06/20/22 metoprolol succinate 25 mg 25 mg PO DAILY #90 tabs 06/24/22 tablet,extended release 24 hr (Toprol XL) cyclobenzaprine 10 mg tablet 10 mg PO DAILY 90 days #90 tabs 07/09/22 levothyroxine 75 mcg tablet 75 mcg PO DAILY #90 tabs 12/10/22 etodolac 400 mg tablet 400 mg PO BID #60 tabs 01/01/23 tramadol 50 mg tablet 50 mg PO BID PRN pain 90 days #180 02/18/23 tabs Allergies Allergy/AdvReac Type Severity Reaction Status Date / Time acetaminophen [From Percocet] Allergy Unknown Stomach Verified 02/17/23 07:35 Upset cefaclor [From Ceclor] Allergy Unknown Hives, Verified 02/17/23 07:35 Itchy erythromycin base Allergy Unknown Hives, Verified 02/17/23 07:35 [ERYTHROMYCIN BASE] Itching oxycodone [From Percocet] Allergy Unknown Stomach Verified 02/17/23 07:35 Upset tetracycline [TETRACYCLINE] Allergy Unknown Hives, Verified 02/17/23 07:35 Itchy Codeine Sulfate Allergy Unknown nausea Uncoded 02/17/23 07:35 PMFSH Past Medical History Medical History COVID-19 Surgical History H/O tubal ligation H/O: hysterectomy History of back surgery History of tonsillectomy Hx of cholecystectomy Family History Family History (Updated 02/17/23 @ 07:42 by Nkechi Jang [employer]) Mother No problems noted. Father Liver cancer Brother COPD (chronic obstructive pulmonary disease) Brother Mental health disorder Bipolar 1 disorder Son No problems noted. Daughter No problems noted. Social History Social History Housing: House Alcohol intake: current Alcohol intake frequency: a few times a month Patient Tobacco Use Status: Never used Tobacco e-Cigarette/Vaping Use: Never Used Second Hand Smoke Exposure: No Advance Directives: No Advance Directives Information Provided: No service: No Current occupational status: employed Current occupation: Financial counselor Current occupational exposures/hazards: No Cognitive needs: No Hearing needs: No Vision needs: Yes Physical Exam Vital Signs: Vital Signs: Last Vital Signs Temp 97.9 F 02/26/23 12:38 Pulse 80 02/26/23 12:38 Resp 18 02/26/23 12:38 BP 151/86 H 02/26/23 12:38 Pulse Ox 99 02/26/23 12:38 O2 Del Method Room Air 02/26/23 12:38 BMI result Body Mass Index 21.4 Course Course Course Narrative: RME: 67yo F w/PMHx hypothyroid, HLD c/o abdominal cramping, N/V and watery diarrhea since yesterday. Admits to about 10 episodes of nonbloody diarrhea. denies recent abx use or travel/suspicious food intake Labs, UA, Stool studies, COVID/FLU, IVF ordered Full HPI, ROS and PE to be performed by primary ED provider. Medical Decision Making Lab Data 02/26/23 13:33 02/26/23 13:33 Labs: Lab Results 02/26/23 02/26/23 02/26/23 Range/Units 13:33 13:33 13:33 WBC 7.9 (4.8-10.8) X10*3/uL RBC 4.37 (4.20-5.50) X10*6/uL Hgb 12.9 (12.0-16.0) g/dl Hct 38.7 (37.0-47.0) % MCV 88.6 (80.0-98.0) fL MCH 29.5 (27.0-33.0) pg MCHC 33.3 (31.0-35.0) g/dl RDW 11.8 (11.0-16.0) % Plt Count 212 (160-400) X10*3/uL MPV 8.5 L (9.4-12.3) fL Immature Gran % (Auto) 0.4 (0.0-0.4) % Neut % (Auto) 88.2 H (45-73) % Lymph % (Auto) 7.4 L (20-40) % [place] % (Auto) 3.3 (2-11) % Eos % (Auto) 0.3 (0-4) % Baso % (Auto) 0.4 (0-2) % Lymph # (Auto) 0.6 L (1.2-4.9) X10*3/uL [place] # (Auto) 0.3 (0.1-1.2) X10*3/uL Eos # (Auto) 0.0 (0.0-0.4) X10*3/uL Baso # (Auto) 0.0 (0.0-0.2) X10*3/uL Abs Immat Gran (auto) 0.03 (0.00-0.03) X10*3/uL Absolute Neuts (auto) 7.0 (2.0-8.3) x10*3/uL Absolute Nucleated RBC 0.000 (0.0-0.012) X10*3/uL Nucleated RBC % (auto) 0.0 (0.0-0.2) /100WBC Sodium 139 (135-145) mmol/L Potassium 4.5 (3.3-5.1) mmol/L Chloride 105 (96-108) mmol/L Carbon Dioxide 28 (22-29) mmol/L Anion Gap 11 L (12-20) BUN 19 H (9-16) mg/dL Creatinine 0.69 (0.5-1.4) mg/dL Estim Creat Clear Calc 64.3 Estimated GFR > 60 Random Glucose 96 (60-115) mg/dL Calcium 9.8 (8.4-10.2) mg/dL Magnesium 2.2 (1.6-2.6) mg/dL Total Bilirubin 0.5 (0.0-1.0) mg/dL Direct Bilirubin 0.2 (0.0-0.5) mg/dL AST 174 H (5-31) U/L ALT 131 H (0-31) U/L Alkaline Phosphatase 97 (39-117) U/L Total Protein 7.4 (6.5-8.0) g/dL Albumin 4.6 (3.5-5.0) g/dL Lipase 120 H (8-78) U/L COVID-19 (EDDIE) (Negative) COVID-19 Clin Com Influenza Type A (JESSICA) Negative (Negative) Influenza Type B (JESSICA) Negative (Negative) Influenza A & B Note See Note 02/26/23 Range/Units 13:33 WBC (4.8-10.8) X10*3/uL RBC (4.20-5.50) X10*6/uL Hgb (12.0-16.0) g/dl Hct (37.0-47.0) % MCV (80.0-98.0) fL MCH (27.0-33.0) pg MCHC (31.0-35.0) g/dl RDW (11.0-16.0) % Plt Count (160-400) X10*3/uL MPV (9.4-12.3) fL Immature Gran % (Auto) (0.0-0.4) % Neut % (Auto) (45-73) % Lymph % (Auto) (20-40) % [place] % (Auto) (2-11) % Eos % (Auto) (0-4) % Baso % (Auto) (0-2) % Lymph # (Auto) (1.2-4.9) X10*3/uL [place] # (Auto) (0.1-1.2) X10*3/uL Eos # (Auto) (0.0-0.4) X10*3/uL Baso # (Auto) (0.0-0.2) X10*3/uL Abs Immat Gran (auto) (0.00-0.03) X10*3/uL Absolute Neuts (auto) (2.0-8.3) x10*3/uL Absolute Nucleated RBC (0.0-0.012) X10*3/uL Nucleated RBC % (auto) (0.0-0.2) /100WBC Sodium (135-145) mmol/L Potassium (3.3-5.1) mmol/L Chloride (96-108) mmol/L Carbon Dioxide (22-29) mmol/L Anion Gap (12-20) BUN (9-16) mg/dL Creatinine (0.5-1.4) mg/dL Estim Creat Clear Calc Estimated GFR Random Glucose (60-115) mg/dL Calcium (8.4-10.2) mg/dL Magnesium (1.6-2.6) mg/dL Total Bilirubin (0.0-1.0) mg/dL Direct Bilirubin (0.0-0.5) mg/dL AST (5-31) U/L ALT (0-31) U/L Alkaline Phosphatase (39-117) U/L Total Protein (6.5-8.0) g/dL Albumin (3.5-5.0) g/dL Lipase (8-78) U/L COVID-19 (EDDIE) Negative (Negative) COVID-19 Clin Com See Note Influenza Type A (JESSICA) (Negative) Influenza Type B (JESSICA) (Negative) Influenza A & B Note Discharge Plan Discharge Clinical Impression: Eloped from emergency department, Gastroenteritis Patient Disposition: Elopement Prescriptions: No Action rosuvastatin [Crestor] 10 mg tablet 10 mg PO DAILY 90 Days Qty: 90 3RF metoprolol succinate [Toprol XL] 25 mg tablet extended release 24 hr 25 mg PO DAILY Qty: 90 3RF cyclobenzaprine 10 mg tablet 10 mg PO DAILY 90 Days Qty: 90 3RF levothyroxine 75 mcg tablet 75 mcg PO DAILY Qty: 90 1RF tramadol 50 mg tablet 50 mg PO BID PRN (Reason: pain) 90 Days Qty: 180 0RF calcium carbonate 600 mg calcium (1,500 mg) tablet 600 mg PO DAILY magnesium hydroxide 400 mg (170 mg magnesium) tablet,chewable PO glucosamine sulfate [Glucosamine] 500 mg tablet 500 mg PO DAILY Rx Instructions: administer with a meal omega-3 fatty acids [Fish Oil Concentrate] 1,000 mg capsule 1,000 mg PO BID melatonin 10 mg capsule 10 mg PO BEDTIME PRN triamcinolone acetonide 0.1 % cream 1 appl topical BID etodolac 400 mg tablet 400 mg PO BID Qty: 60 4RF Rx Instructions: Do not take with ibuprofen Interventions: ED Discharge Assessment Last Done: 02/26/23 16:01 Discharge Date/Time: 02/26/23 16:05
[2023-02-26 13:44] LABS: MANUAL DIFF FLAG NO
[2023-02-26 13:49] LABS: Basophils Percent Auto 0.4 % (0-2); Eosinophils Percent Auto 0.3 % (0-4); Hematocrit 38.7 % (37.0-47.0); Hemoglobin 12.9 g/dl (12.0-16.0); Imm Gran Abs Auto 0.03 X10*3/uL (0.00-0.03); Imm Gran Pct Auto 0.4 % (0.0-0.4); Lymphocytes Absolute Auto 0.6 X10*3/uL (1.2-4.9); Lymphocytes Percent Auto 7.4 % (20-40); Mean Corpuscular HGB Conc 33.3 g/dl (31.0-35.0); Mean Corpuscular Hemoglobin 29.5 pg (27.0-33.0); Mean Corpuscular Volume 88.6 fL (80.0-98.0); Mean Platelet Volume 8.5 fL (9.4-12.3); Monocytes Absolute Auto 0.3 X10*3/uL (0.1-1.2); Monocytes Percent Auto 3.3 % (2-11); Neutrophils Percent Auto 88.2 % (45-73); Platelet Count 212 X10*3/uL (160-400); Red Blood Count 4.37 X10*6/uL (4.20-5.50); Red Cell Distribution Width 11.8 % (11.0-16.0); White Blood Count 7.9 X10*3/uL (4.8-10.8)
[2023-02-26 14:01] LABS: COVID-19 Test Negative (Negative); IDNOW Serial# 9DB6401D
[2023-02-26 14:05] LABS: Alanine Aminotransferase 131 U/L (0-31); Albumin Level 4.6 g/dL (3.5-5.0); Alkaline Phosphatase 97 U/L (39-117); Anion Gap 11 (12-20); Aspartate Amino Transferase 174 U/L (5-31); Bilirubin Direct 0.2 mg/dL (0.0-0.5); Bilirubin Total 0.5 mg/dL (0.0-1.0); Blood Urea Nitrogen 19 mg/dL (9-16); Calcium 9.8 mg/dL (8.4-10.2); Carbon Dioxide 28 mmol/L (22-29); Chloride 105 mmol/L (96-108); Creatinine Clr Calc Pharmacy 64.3; Estimated Glomerular Filt Rate > 60; Glucose Random 96 mg/dL (60-115); Lipase 120 U/L (8-78); Magnesium 2.2 mg/dL (1.6-2.6); Potassium 4.5 mmol/L (3.3-5.1); Sodium 139 mmol/L (135-145); Total Protein 7.4 g/dL (6.5-8.0)
[2023-02-26 14:09] LABS: IDNOW Serial# 08D9AD1C; Influenza A Negative (Negative); Influenza B2 Negative (Negative)
== END 2023-02-26 16:05 | disposition left against medical advice (07) ==
PROVIDERS: Physician Assistant; Emergency Provider Emergency Medicine; PCP Internal Medicine
DX: K52.9 Noninfective gastroenteritis and colitis, unspecified (principal); R11.2 Nausea with vomiting, unspecified; Z20.822 Contact with and (suspected) exposure to COVID-19
CPT/HCPCS: 36415; 80048; 80076; 83690; 83735; 85025; 87502; 87635; 99282; 99283

== ENCOUNTER 2023-04-04 11:00 | Outpatient (RCR) | payer OTHER, SELFPAY ==
--- NOTE | 2023-01-07 09:19 | MHC.PT.EP ---
[facility] [place] Office [place] Office [place] Office [address] [phone] F: [phone] F: [phone] F: [phone] F: [phone] Physical Therapy Plan of Care Date of Evaluation: Date of Surgery: Diagnosis: LOW BACK PAIN (KP) Assessment: NOLAN IS A PLEASANT 67 YO [employer] [place] [employer] WHO WORKS IN THE [employer] OFFICE. SHE REPORTS LOW BACK PAIN BEGINNING A FEW MONTHS BACK, NO ALESSANDRA. REPORTS PAIN IS ACROSS LOW BACK AND INTO LEFT HIP AND BUTTOCK. SYMPTOMS ARE REPORTED TIRED,ACHY, STIFF PAIN WILL OCC. WAKE HER UP AT NIGHT. DENIES ANY ALTERED SENSATION, NO BALANCE ISSUES, NO B/B SYMPTOMS. UPON EXAM IMPAIRMENTS INCLUDE DECREASED HIP AND CORE STRENGTH, ALTERED POSTURE AND GAIT AND INCREAED PAIN. FUNCTIONAL LIMITATIONS INCLUDE DECREASED ABILITY TO PERFORM BENDING, LIFTING, PUSHING AND PULLING. SHE REPORTS DECREAESD TOLERANCE TO STATIC STANDING OR SITTING AND DECREAESD TOLERANCE TO LONG PERIODS OF WALKING. SHE REPORTS DECREAESD ABILITY TO PARTICIPATE IN RECREATIONAL ACTIVITIES AND SHE REPORTS DISRUPTED SLEEP. Frequency and Duration: The patient will be seen 2 X WEEK FOR 4 WEEKS Short Term Goals: INITIATE HEP AND PROMOTE SELF MANAGEMENT OF SYMPTOMS Maintenance Craftsman Goals: To ambulate ad gavi on variable surfaces without pain greater than 2/10 To demonstrate 5/5 LE strength equal [place] IN To demonstrate full lumbar ROM without pain greater than 2/10 Independent HEP Treatment Plan: Modalities to reduce pain, spasms and effusion. Manual therapy to restore motion and function. Therapeutic exercise to improve strength and flexibility. Neuromuscular re-education for posture and balance. Therapeutic activities to return to functional activities of daily living. Electronically signed by: Janette Naik PT DPT Please sign and return to therapist. Thank you for your referral.
--- NOTE | 2023-04-18 10:39 | MHC.PT.DC ---
[facility] [place] Office [place] Office [place] Office [address] Yadi [place] [address] [phone] F: [phone] F: [phone] F: [phone] F: [phone] Physical Therapy Discharge Report Diagnosis: LOW BACK PAIN (KP) Date of Surgery: Date of Evaluation: 01/06/23 Date of Discharge: 04/06/23 Treatments to Date: 12 Cancellations to Date: 0 No Shows to Date: 0 Discharge Status: Improved Function Independent with HEP Discharge Summary: Bernadette arrived with no new complaints. Her symptoms are about the same. She was continues to report of having pain with too much standing, walking or packing. She however knows how to manage her symptoms with HEP. She has completed 12 PT visits and is independent with all HEP. She is also moving to [place] at the end of April. She is therefore being d/c from PT. Bernadette is in agreement with the plan. No adverse response noted to any exercise. Electronically signed by: ASH WILLETT PT DPT Please sign and return to therapist. Thank you for your referral.
== END 2023-04-18 10:39 | disposition home or self-care (01) ==
LOC: HO.PT 11:00
PROVIDERS: PCP Internal Medicine; Visit Provider Nurse Practitioner Family
DX: M47.812 Spondylosis without myelopathy or radiculopathy, cervical region (principal); M47.816 Spondylosis without myelopathy or radiculopathy, lumbar region
CPT/HCPCS: 97110; 97161

== ENCOUNTER 2023-04-15 13:05 | Outpatient (REF) | payer OTHER, SELFPAY ==
[2023-04-15 14:47] LABS: Alanine Aminotransferase 26 U/L (0-31); Alkaline Phosphatase 68 U/L (39-117); Aspartate Amino Transferase 31 U/L (5-31); Bilirubin Direct 0.1 mg/dL (0.0-0.5); Bilirubin Total 0.4 mg/dL (0.0-1.0); Total Protein 6.3 g/dL (6.5-8.0)
[2023-04-16 03:19] LABS: HBS Num1 0.18 mIU/mL (0-7.99); HBc Num1 0.08 S/CO (0.00-0.79); HBsAGNum1 0.39 S/CO (0.00-0.99); Hepatitis A Antibody IgM 0.31 Index (0-0.79); Hepatitis B Core Antibody Nonreactive (Nonreactive); Hepatitis B Surface Antigen Negative (Negative); ~HepC Num1 0.09 S/CO (0.00-0.79); ~Hepatitis A Antibody IgM Nonreactive (Nonreactive); ~Hepatitis B Surface Antibody NONREACTIVE (Nonreactive); ~Hepatitis C Antibody Nonreactive (Nonreactive)
== END 2023-04-15 13:06 | disposition home or self-care (01) ==
LOC: HO.LAB 13:05
PROVIDERS: PCP Internal Medicine; Visit Provider Psychiatry & Neurology Neurology
DX: R74.8 Abnormal levels of other serum enzymes (principal)
CPT/HCPCS: 36415; 80076; 86704; 86706; 86709; 86803; 87340

== ENCOUNTER 2023-04-16 08:06 | Outpatient (REF) | payer OTHER, SELFPAY ==
--- NOTE | ~2023-04-16 | MR_ITS ---
EXAMINATION: MR BRAIN WITHOUT AND WITH CONTRAST CLINICAL INFORMATION: Parkinson's disease. Meningioma. COMPARISON: None available. TECHNIQUE: MRI of the brain was obtained using routine sequences without and following the administration of 5 mL of Gadavist intravenous contrast. FINDINGS: There are calcified extra-axial lesions along the left aspect of the falx (1.3 x 0.5 x 1 cm) and the inner table of the left calvarium along the lateral aspect of the left frontal lobe (1.1 x 0.8 x 0.9 cm). There is inherent T1 shortening associated with the lateral lesion. No demonstrated overt enhancement associated with these lesions. No overt mass effect or perilesional edema. No focal restricted diffusion is demonstrated to suggest acute or subacute cerebral ischemia. No evidence of acute or chronic hemorrhagic products on heme-sensitive imaging. Scattered periventricular and deep white matter T2 FLAIR hyperintensities consistent with mild underlying microangiopathy. Proportional prominence of the ventricles and sulcal spaces without evidence of obstructive hydrocephalus. No abnormal mass effect. No midline shift. Normal appearance of the pituitary gland. Normal positioning of the cerebellar tonsils. Normal arterial and venous vascular flow voids are present. No abnormal contrast enhancement. Normal, homogeneous marrow signal. Mild mucosal thickening of the paranasal sinuses. Moderate rightward nasal septal deviation. No signal abnormalities within the mastoids. MR/MR head/brain wo/w con IMPRESSION: 1. No acute intracranial abnormalities. No abnormal intracranial enhancement. 2. Mild underlying microangiopathy and generalized cerebral volume loss. 3. Calcified extra-axial lesions along the left aspect of the falx and lateral aspect of the left frontal lobe may small calcified meningiomas.
== END 2023-04-16 08:07 | disposition home or self-care (01) ==
LOC: HO.MRI 08:06
PROVIDERS: PCP Internal Medicine; Visit Provider Psychiatry & Neurology Neurology
DX: G20 Parkinson's disease (principal); D32.9 Benign neoplasm of meninges, unspecified
CPT/HCPCS: 70553; A9585

== ENCOUNTER 2023-04-22 09:03 | Outpatient (AMB) | payer OTHER, SELFPAY ==
--- NOTE | 2023-04-22 09:08 | A.OFFVIS_ITS ---
Intake Vital Signs 04/22/23 09:09 Height 5 ft 2 in Weight 114 lb 10.246 oz BMI 21.0 BP 112/64 Blood Pressure Location Lt brachial Position Sitting Pulse 64 Pulse Source Palpation Temp 97.6 F Temp Source Skin Intake Visit Reasons: osteoarthritis Air Pollution Analyst Required: No Accompanied by: Self / Same As Patient Allergies acetaminophen [From Percocet] Allergy (Unknown, Verified 04/22/23 09:13) Stomach Upset cefaclor [From Ceclor] Allergy (Unknown, Verified 04/22/23 09:13) Hives, Itchy erythromycin base [ERYTHROMYCIN BASE] Allergy (Unknown, Verified 04/22/23 09:13) Hives, Itching oxycodone [From Percocet] Allergy (Unknown, Verified 04/22/23 09:13) Stomach Upset tetracycline [TETRACYCLINE] Allergy (Unknown, Verified 04/22/23 09:13) Hives, Itchy Codeine Sulfate Allergy (Unknown, Uncoded 04/22/23 09:13) nausea Medication List - Last Reconciled 04/22/23 by Jacob Rollins MD calcium carbonate 600 mg PO DAILY cyclobenzaprine 10 mg PO DAILY 90 days etodolac 400 mg PO BID glucosamine sulfate (Glucosamine) 500 mg PO DAILY levothyroxine 75 mcg PO DAILY magnesium hydroxide mg PO melatonin 10 mg PO BEDTIME PRN metoprolol succinate ER (Toprol XL) 25 mg PO DAILY omega-3 fatty acids (Fish Oil Concentrate) 1,000 mg PO BID ondansetron 8 mg PO Q8H PRN 30 days rosuvastatin (Crestor) 10 mg PO DAILY 90 days tramadol 50 mg PO BID PRN 90 days triamcinolone acetonide 0.1% 1 appl topical BID HPI HPI Comments History of Present Illness Details The patient returns for evaluation of her osteoarthritis. She was last seen by Claudia mcpherson in December. She takes etodolac 400 mg b.i.d. and tramadol 50 mg twice a day, the latter prescribed by her primary doctor. Mostly this is for back pain but she also gets knee pain - both sites of OA. The knee pain seems to occur exclusively with stairs. There was no injury noted. She has had intra-articular corticosteroid and gel injections that were not all that effective. She also underwent a nerve block that was helpful for only about 3 weeks. She has had 2 surgical procedures on her back. The back pain comes on more with walking or standing. There is no radicular component to that pain currently. She had recent DEXA scanning done. This showed osteopenia with a T- score at the femoral neck of-2.1. FRAX analysis indicated 18.4% chance of fracture and 1.6% chance of hip fracture. She remains active doing walking on a daily basis. She has plans to move to [place] at the end of the month. She was recently on some Sinemet for resting tremor in the right hand. This seemed to cause nausea so she stopped it. She told me the neurologist thought she had parkinsonism. A brain MRI was done, results pending. [facility] Medical History COVID-19 Surgical History H/O tubal ligation H/O: hysterectomy History of back surgery History of tonsillectomy Hx of cholecystectomy Family History Mother No problems noted. Father Liver cancer Brother COPD (chronic obstructive pulmonary disease) Brother Mental health disorder Bipolar 1 disorder Son No problems noted. Daughter No problems noted. Social History Housing: House Alcohol intake: current Alcohol intake frequency: a few times a month Patient Tobacco Use Status: Never used Tobacco e-Cigarette/Vaping Use: Never Used Second Hand Smoke Exposure: No service: No Current occupational status: employed Current occupation: Financial counselor Current occupational exposures/hazards: No Cognitive needs: No Hearing needs: No Vision needs: Yes Review of Systems Const Details: Negative for appetite change, weight change, fever, chills, malaise and fatigue Eyes Details: Negative for vision change, dry eyes,headaches and dizziness ENT Details: Negative for hearing change, tinnitus, oral ulcer, nose bleeds and oral dryness. Card Details: Negative chest pain, edema and syncope Resp Details: Negative for SOB, cough and wheezing GI Details: Negative indigestion/heartburn, nausea, abdominal pain, bowel changes, diarrhea, constipation and bloody stool. Neuro Details: Tremor as noted above, presumably Parkinson's. Negative for epilepsy, palsy, stroke, changes in speech, tingling and weakness Kendall/Lymph Details: Negative for excessive bruising or bleeding. Physical Exam Vital Signs: Last Vital Signs Temp 97.6 F 04/22/23 09:09 Pulse 64 04/22/23 09:09 BP 112/64 04/22/23 09:09 BMI result Body Mass Index 21.0 APPEARANCE: Patient in no acute distress ABD: Normal bowel sounds, no organomegaly, masses or tenderness. EXTREMITIES: No edema, no calf tenderness, normal peripheral pulses. NEURO: Oriented and alert x3. No focal weakness. Reflexes symmetric. She has an intermittent resting tremor in the right hand. No cogwheeling. SKIN: No inflammatory or neoplastic lesions. Normal color and turgor ?? JOINT EXAM: Cervical Spine:? Full range of motion without pain; slight tenderness to palpation.? Normal occiput to wall test. Thoracic Spine: No scoliosis.? No tenderness on palpation. Lumbar Spine: Alignment normal.? Pain with flexion and extension.? Negative Qi test.? Tenderness to palpation over the paraspinal muscles;, more so on the left. Hands:? There is some prominence of the thumb CMC joints. This is slightly tender on the left. Otherwise there is Normal pain-free range of motion without tenderness, swelling, increased warmth or erythema. Able to make a full fist and has a good grip assembler strength.? No evidence of Raynaud's.? Thenar atrophy noted bilaterally.? No evidence of telangiectasias, Raynaud's symptoms or sclerodactyly.? Wrists:? Normal pain-free range of motion without tenderness, swelling, increased warmth or erythema. Elbows: Normal pain-free range of motion without tenderness, swelling, increased warmth or erythema. Shoulders:? Full range of motion without pain. No tenderness, weakness, swelling , increased warmth or erythema. Hips:? Full range of motion without pain. Hip bursa:? No tenderness. Knees: LEFT:? Normal pain-free range of motion with moderate patellofemoral crepitus. There is no effusion, tenderness, swelling, increased warmth or erythema.? The ? RIGHT: Normal pain-free range of motion with moderate patellofemoral crepitus. There is no effusion, tenderness, swelling, increased warmth or erythema.?? Pain is reported with use on stairs. Ankles: Normal pain-free range of motion without tenderness, swelling, increased warmth or erythema. Feet: LEFT: Normal pain-free range of motion without tenderness, swelling, increased warmth or erythema.? Tenderness to palpation of the base of the great toe. ? Normal pedal pulses.? Normal temperature. ? RIGHT: Normal pain-free range of motion without tenderness, swelling, increased warmth or erythema.? Tenderness to palpation of the base of the great toe.? Toes with slight purplish color.? Normal pedal pulses.? Normal temperature. Results Reviewed Results Reviewed: Laboratory Tests 08/17/19 02/26/23 02/26/23 22:11 13:33 13:33 WBC 7.9 Hgb 12.9 Creatinine 0.69 AST 174 H ALT 131 H Urine Protein NEG 04/15/23 13:32 WBC Hgb Creatinine AST 31 ALT 26 Urine Protein Assessment & Plan Assessment & Plan (1) Degenerative arthritis of lumbar spine: Code(s): M47.816 - Spondylosis without myelopathy or radiculopathy, lumbar region (2) NSAID long-term use: Code(s): Z79.1 - retirement (current) use of non-steroidal anti-inflammatories (NSAID) (3) Primary osteoarthritis of knees, bilateral: Code(s): M17.0 - Bilateral primary osteoarthritis of knee Plan Osteoarthritis in the knees and lower back region. She seems to get symptomatic benefit with the etodolac. It is not causing her any side effects. She is not anemic and her lab work shows no proteinuria or renal dysfunction. I think for now she can continue with that. She was warned about the potential for GI side effects with the etodolac. The tramadol she also believes is helpful. I told her that long-term use of narcotics for OA is not always that beneficial particularly when taking on a regular basis. She also may have trouble getting a regular prescription for this when she move to [place]. I suggested she try to skip the daytime dose and then maybe taper off it or just use it on a p.r.n. basis in the future. She would have to get future refills from her primary doctor either here are in [place]. Medications: Refilled etodolac Do not take with ibuprofen 400 mg PO BID 180 tabs 2RF Coding Level of Care Code Est Pt Level 3 (37046) Diagnoses Degenerative arthritis of lumbar spine M47.816 NSAID long-term use Z79.1 Primary osteoarthritis of knees, bilateral M17.0
[2023-04-22 09:09] VITALS: BP 112/64; PULSE 64; TEMP 36.4; BMI 21.0
== END 2023-04-22 09:47 | disposition home or self-care (01) ==
PROVIDERS: PCP Internal Medicine; Visit Provider Internal Medicine Rheumatology
DX: M47.816 Spondylosis without myelopathy or radiculopathy, lumbar region (principal); Z79.1 Long term (current) use of non-steroidal anti-inflammatories (NSAID); M17.0 Bilateral primary osteoarthritis of knee
CPT/HCPCS: 99213

== ENCOUNTER → 2023-04-22 09:03 | Outpatient (BNVA) | payer OTHER, SELFPAY | PROVIDERS: PCP Internal Medicine; Visit Provider Internal Medicine Rheumatology ==

== ENCOUNTER 2023-04-24 14:59 | Outpatient (AMB) | payer OTHER, SELFPAY ==
[2023-04-24 15:07] VITALS: BP 110/70; PULSE 76; BMI 21.0
--- NOTE | 2023-04-24 15:07 | A.OFFVIS_ITS ---
Intake Vital Signs 04/24/23 15:07 Height 5 ft 2 in Weight 114 lb 10.246 oz BMI 21.0 BP 110/70 Blood Pressure Location Lt brachial Position Sitting Pulse 76 Intake Visit Reasons: 1 year follow up Intake Note: 1 year f/u patient having some chest pain while doing physical activities It Project Lead Required: No Allergies acetaminophen [From Percocet] Allergy (Unknown, Verified 04/24/23 15:17) Stomach Upset cefaclor [From Ceclor] Allergy (Unknown, Verified 04/24/23 15:17) Hives, Itchy erythromycin base [ERYTHROMYCIN BASE] Allergy (Unknown, Verified 04/24/23 15:17) Hives, Itching oxycodone [From Percocet] Allergy (Unknown, Verified 04/24/23 15:17) Stomach Upset tetracycline [TETRACYCLINE] Allergy (Unknown, Verified 04/24/23 15:17) Hives, Itchy Codeine Sulfate Allergy (Unknown, Uncoded 04/22/23 09:13) nausea Medication List - Last Reconciled 04/24/23 by Piero Shields MD calcium carbonate 600 mg PO DAILY cyclobenzaprine 10 mg PO DAILY 90 days etodolac 400 mg PO BID glucosamine sulfate (Glucosamine) 500 mg PO DAILY levothyroxine 75 mcg PO DAILY magnesium hydroxide mg PO melatonin 10 mg PO BEDTIME PRN metoprolol succinate ER (Toprol XL) 25 mg PO DAILY omega-3 fatty acids (Fish Oil Concentrate) 1,000 mg PO BID ondansetron 8 mg PO Q8H PRN 30 days rosuvastatin (Crestor) 10 mg PO DAILY 90 days tramadol 50 mg PO BID PRN 90 days triamcinolone acetonide 0.1% 1 appl topical BID HPI HPI Comments History of Present Illness Details Bernadetet comes for follow-up today. She is moving to [place] in 10 days permanently. He today says that when she is walking up hill or walking up a flight of stairs carrying heavy weight she gets retrosternal chest tightness. Symptoms are not as severe and resolved after resting in 10 minutes. She does not have associated palpitations. She thinks the symptoms are better with metoprolol. All the last year she was having more chest tightness associated with palpitations. She is not having any palpitations at this point in time. No symptoms at rest. [facility] Medical History COVID-19 Surgical History H/O tubal ligation H/O: hysterectomy History of back surgery History of tonsillectomy Hx of cholecystectomy Family History Mother No problems noted. Father Liver cancer Brother COPD (chronic obstructive pulmonary disease) Brother Mental health disorder Bipolar 1 disorder Son No problems noted. Daughter No problems noted. Social History Housing: House Alcohol intake: current Alcohol intake frequency: a few times a month Patient Tobacco Use Status: Never used Tobacco e-Cigarette/Vaping Use: Never Used Second Hand Smoke Exposure: No service: No Current occupational status: employed Current occupation: Financial counselor Current occupational exposures/hazards: No Cognitive needs: No Hearing needs: No Vision needs: Yes Review of Systems ENT Reports dizziness Card Denies chest pain, Denies chest pain at rest, Denies chest pain with activity, Denies rapid heart rate, Denies pedal edema, Denies edema, Denies leg edema, Denies lightheadedness, Denies palpitations, Denies dyspnea, Denies dyspnea on exertion and Denies orthopnea Resp Denies cough, Denies dyspnea and Denies dyspnea on exertion GI Denies hematochezia and Denies change in stool character Musc Denies abnormal gait, Reports limited range of motion, Reports muscle cramps, Denies muscle weakness, Denies numbness, Denies radiating pain into limb, Denies stiffness and Denies tingling Neuro Denies Abnormal speech present, Denies abnormal gait, Reports dizziness, Denies numbness and Denies tingling Endo Denies palpitations Physical Exam Vital Signs: Last Vital Signs Pulse 76 04/24/23 15:07 BP 110/70 04/24/23 15:07 BMI result Body Mass Index 21.0 Const General: cooperative, comfortable, no acute distress, alert, awake and Phy sically active Nutritional Appearance: thin Orientation/consciousness: patient oriented x3 Limitations: no limitations Neck Neck: Yes trachea midline, Yes supple and Yes no JVD Resp Effort & Inspection: normal respiratory effort Auscultation: clear to auscultation bilaterally Cardio Jugular venous distension: no JVD Palpation: normal PMI Rate: regular rate Rhythm: regular rhythm Heart sounds: S1 normal heart sound present, S2 normal heart sound present, no click, no gallops, no murmurs and no rubs GI Auscultation: normal bowel sounds Skin General skin exam: no rashes or lesions noted Neuro General: patient oriented x3 and no focal motor deficits Speech: No Abnormal speech present Extrem General: Yes no clubbing, cyanosis or edema Psych Appearance: grossly normal Office Procedures EKG Details: EKG shows normal sinus rhythm with right bundle-branch block, right bundle- [place] [id number], Complete Assessment & Plan Assessment & Plan (1) Exertional chest pain: Code(s): R07.9 - Chest pain, unspecified Plan: Exertional chest pain this elderly woman with multiple risk factors concerning for obstructive coronary artery disease. Her myocardial perfusion imaging last year was within normal limits although balanced ischemia is likely. She also has a new right bundle-branch block. Strongly recommended to undergo anatomic evaluation of coronary arteries with coronary CTA. Will try to see if this can be done prior to her moving to [place] otherwise she should get a printed prescription to perform this testing as soon as she reaches [place]. Continue aspirin. Continue statin therapy. Target goal LDL less than 70 mg/dL. If she develops significant symptoms at rest she is advised to seek emergency care. Advised to set up for follow-up with primary care physician as soon as she reaches [facility] [place]. Coding Level of Care Code Est Pt Level 4 (77110) Diagnoses Exertional chest pain R07.9 CPT Codes EKG - CPT: 84261-[id number], Complete ([id number])
== END 2023-04-24 15:30 | disposition home or self-care (01) ==
PROVIDERS: Visit Provider Internal Medicine Cardiovascular Disease
DX: R07.9 Chest pain, unspecified (principal)
CPT/HCPCS: 93010; 99214

== ENCOUNTER → 2023-04-24 14:59 | Outpatient (BNVA) | payer OTHER, SELFPAY | PROVIDERS: Visit Provider Internal Medicine Cardiovascular Disease | DX: R07.89 Other chest pain (principal); Z86.16 Personal history of COVID-19 | CPT/HCPCS: 93005 ==